=== PATIENT | female | born 1970 | race Two or more races ===

== ENCOUNTER 2016-12-30 14:25 | Emergency (ER) | payer OTHER ==
[2016-12-30 15:13] VITALS: BP 148/81; PULSE 91; TEMP 101; BMI 24.7
[2016-12-30] MEDS ORDERED: IBUPROFEN 400 MG TABLET (FP) PO ONE ×2 (17:03→17:05)
--- NOTE | 2016-12-30 17:09 | PDOC ---
History of Present Illness - General Chief Complaint: Cold Symptoms Stated Complaint: FEVER, SORE THROAT Time Seen by Provider: 12/30/16 16:35 History Source: Patient Exam Limitations: No Limitations - History of Present Illness Initial Comments: 12/30/16 17:04 cc FEVER, SORE THROAT, COUGH, BODY ACHES X 2 DAYS; Timing/Duration: reports: getting worse Severity: reports: moderate Modifying Factors: worse with: albuterol inhaler Associated Symptoms: reports: cough, fever/chills, nasal congestion, nasal drainage, sore throat. denies: denies symptoms, chest pain/soreness, wheezing Past History - Past Medical History Allergies/Adverse Reactions: Allergies Allergy/AdvReac Type Severity Reaction Status Date / Time oxycodone HCl [From Percocet] Allergy Mild Verified 12/30/16 15:09 Home Medications: Ambulatory Orders NK [No Known Home Medication] 12/30/16 Asthma: No GI Disorders: No Disorders: No HTN: No Hypercholesterolemia: No Other medical history: chronic neck pain - Surgical History Orthopedic Surgery: Yes (cervical neck fusion C3-4) - Immunization History Immunization Up to Date: Yes - Psycho/Social/Smoking Cessation Hx Anxiety: No Suicidal Ideation: No Smoking Status: No Smoking History: Never smoked Have you smoked in the past 12 months: No Number of Cigarettes Smoked Daily: 0 Hx Alcohol Use: No Drug/Substance Use Hx: No Substance Use Type: None Hx Substance Use Treatment: No Review of Systems - Review of Systems Constitutional: Yes: Chills, Fever, Malaise HEENTM: Yes: Symptoms Reported Respiratory: Yes: Cough. No: Symptoms reported, SOB with Exertion, Stridor, Wheezing Cardiac (ROS): No: Symptoms Reported ABD/GI: No: Symptoms Reported : No: Symptoms Reported Musculoskeletal: No: Symptoms Reported Integumentary: No: Symptoms Reported Neurological: No: Symptoms reported Psychiatric: No: Anxiety Endocrine: No: Symptoms Reported *Physical Exam - Vital Signs Last Vital Signs Temp Pulse Resp BP Pulse Ox 101 F H 91 H 19 148/81 98 12/30/16 15:09 12/30/16 15:09 12/30/16 15:09 12/30/16 15:09 12/30/16 15:09 - Physical Exam General Appearance: Yes: Appropriately Dressed. No: Apparent Distress HEENT: negative: TMs Normal, Pharynx Normal Neck: positive: Supple, Lymphadenopathy (R), Lymphadenopathy (L). negative: Tender, Rigid Respiratory/Chest: positive: Chest Tender, Lungs Clear, Normal Breath Sounds, Rhonchi, Stridor. negative: Wheezing Cardiovascular: negative: Regular Rhythm, Regular Rate Female Pelvic Exam: negative: normal external exam Medical Decision Making - Medical Decision Making 12/30/16 17:08 MOTRIN GIVEN HERE; WILL CALL AT HOME IF STREP POSITIVE; LOTS OF FLUIDS *DC/Admit/Observation/Transfer Diagnosis at time of Disposition: Influenza - Discharge Dispostion Disposition: HOME Condition at time of disposition: Stable Admit: No - Patient Instructions Additional Instructions: I WILL CALL YOU WITH RESULTS OF STREP IN 1-2 HOURS; ADVIL 400MG FOR FEVER AND PAIN; REST - Post Discharge Activity Work/School Note: Back to Work
== END 2016-12-30 18:24 | disposition home or self-care (01) ==
LOC: JERFT 14:25
DX: J11.1 Influenza due to unidentified influenza virus with other respiratory manifestations (principal)
CPT/HCPCS: 87070; 87430; 99281-25

== ENCOUNTER 2017-03-07 07:57 | Day surgery (SDC) | payer OTHER ==
[2017-03-06 17:48] VITALS: BMI 24.8
--- NOTE | 2017-03-06 18:51 | PREOP ---
DATE OF ADMISSION: DATE OF SURGERY: 03/07/2017 DATE OF DICTATION: 03/06/2017 ADMISSION DIAGNOSIS: Right neck mass. HISTORY OF PRESENT ILLNESS: This 46-year-old female has had mass of the right neck which has been present for 4-5 months. It is painless, and otherwise asymptomatic. She is able to feel the swelling and feel that it has enlarged since she first noticed it. She had a CT scan of the neck performed demonstrating 1.6 cm hypodense mass on the right submandibular region suggesting a second brachial cleft cyst, which is well demarcating and an adjacent small lymph node. It is palpable on exam. She is now admitted for surgery for excision of right neck mass. PAST MEDICAL HISTORY: Primary medical doctor is Dr. Ronen Barbosa. The patient has history of anterior cervical fusion in 2007, also has history of gastroesophageal reflux disease, she does not smoke. ALLERGIES TO MEDICATIONS: None known. PRESENT MEDICATIONS: Include tramadol and omeprazole. On exam, she has had no other bleeding problems. She has not had any problems with anesthesia. FAMILY HISTORY: Negative for bleeding or anesthesia problems. PHYSICAL EXAMINATION: General: Patient is a well developed female, in no acute distress. HEENT: Head is normal. Eyes are clear. Ears are unremarkable. The nose and throat are unremarkable. Neck: Shows a well healed anterior cervical scar from her previous cervical spine surgery. In the right submandibular area, there is a small mobile mass distinct and slightly posterior to the submandibular gland. It is mobile. It lays superior to a natural existing skin fold. IMPRESSION: Right neck mass, second brachial cleft cyst. Small lymph node adjacent. PLAN: Excision of right neck mass under general anesthesia. INFORMED CONSENT: Patient understands the indications, alternatives, nature of risks and benefits of proposed surgery. Potential complications including but not limited to anesthesia, bleeding, infection, neck scar, numbness, lower lip weakness and need for further treatment were discussed in detail. She understands and accepts these risks and wishes to proceed with surgery. Questions were answered fully. EMMANUELLE DELANEY M.D. [id number] MTDD
[2017-03-07] MEDS ORDERED: PROMETHAZINE HCL 25 MG/1 ML VIAL IVPUSH PRN (09:36)
[2017-03-07] MEDS ORDERED: ONDANSETRON 4 MG/2 ML VIAL IVPUSH PRN (09:36)
[2017-03-07] MEDS ORDERED: LACTATED RINGERS SOLUTION 1,000 ML IV SCH (09:45)
--- NOTE | 2017-03-07 09:45 | HP ---
History & Physical Update - History History: No Change - Physical Physical: No Change - Assessment Assessment: No Change - Plan Plan: No Change
[2017-03-07] MEDS ORDERED: ROCURONIUM BROMIDE 50 MG/5 ML VIAL ONE (09:56)
[2017-03-07] MEDS ORDERED: PROPOFOL 20 ML ONE (09:56)
[2017-03-07] MEDS ORDERED: MIDAZOLAM HCL 2 MG/2 ML SINGLE DOSE VIAL ONE (09:56)
[2017-03-07] MEDS ORDERED: LIDOCAINE HCL/PF 2% SDV 5ML VIAL ONE (09:56)
[2017-03-07] MEDS ORDERED: DEXAMETHASONE SOD PHOSPHATE 4 MG/1 ML VIAL ONE (10:14)
[2017-03-07] MEDS ORDERED: GLYCOPYRROLATE 0.2 MG/1 ML VIAL ONE (10:48)
[2017-03-07] MEDS ORDERED: ACETAMINOPHEN 325 MG TABLET (FP) PO PRN (11:23)
[2017-03-07] MEDS ORDERED: TRIMETHOBENZAMIDE HCL 200MG/2ML INJ IM PRN (11:23)
--- NOTE | 2017-03-07 11:23 | OP ---
Operative Note - Note: Operative Date: 03/07/17 ([id number]) Pre-Operative Diagnosis: right neck mass, suspect right branchial cleft cyst and lymph node Operation: Excision of right neck mass - branchial cleft cyst and excision of adjacent lymph node, intermediate closure Findings: 1.5 cm smooth round cyst, adjacent enlarged lymph node (level 2) right upper neck Implants: none Post-Operative Diagnosis: Same as Pre-op Surgeon: Jake Hillman Anesthesiologist/[employer] FORMER: Min Masterson Anesthesia: General Specimens Removed: right neck mass - cyst and lymph node Estimated Blood Loss (mls): 2 Drains & Tubes with Location: none Blood Volume Replaced (mls): 0 Operative Report Dictated: Yes
[2017-03-07 13:52] VITALS: TEMP 98.2
[2017-03-07 13:57] VITALS: BP 129/72
[2017-03-07] MEDS ORDERED: ACETAMINOPHEN 325 MG TABLET (FP) ONE (14:14)
[2017-03-07 16:11] VITALS: PULSE 86
--- NOTE | 2017-03-08 07:40 | OP ---
DATE OF OPERATION: 03/07/2017 PREOPERATIVE DIAGNOSIS: Right neck mass, suspect right branchial cleft cyst, and enlarged lymph node. POSTOPERATIVE DIAGNOSIS: Right neck mass, suspect right branchial cleft cyst and enlarged lymph node. PROCEDURE: Excision of right neck branchial cleft cyst and excision of right deep cervical lymph node with intermediate closure. SURGEON: Jake Hillman MD ANESTHESIOLOGIST: Min Masterson MD ANESTHESIA: General via endotracheal tube. INDICATIONS: This 46-year-old female has developed a 5-month history of a palpable right neck mass, which has enlarged over time. It is posterior to the right submandibular salivary gland and is painless. CT scan demonstrates a 1.6-cm hypodense mass suggesting a right branchial cleft cyst along with an adjacent enlarged lymph node. She is now brought to surgery for treatment. FINDINGS: Right anterior neck cyst, right enlarged cervical lymph node. DESCRIPTION OF PROCEDURE: Patient was brought to the operating room and placed on the operating table in supine position. General endotracheal anesthesia was induced to a satisfactory level. She was prepped and draped in the usual fashion for surgery. The right anterior neck mass was palpable in the location identified with the patient and marked prior to the induction of anesthesia. Inferior to this was a natural occurring skin fold. The skin fold was 5 cm below the inferior border of the mandible. The incision was created with a 15 blade within the natural occurring skin fold and brought down through skin and subcutaneous tissue. Hemostasis was achieved with electrocautery. Subcutaneous fat was traversed. The platysma muscle identified and then incised. Subplatysmal dissection was then performed. The sternocleidomastoid was readily seen. More superiorly then, a rounded cystic structure was identified. The mass was palpable and corresponded to her lesion. This area was then carefully bluntly dissected. It appeared to be a mass along with an adjacent adherent enlarged cervical lymph node. Mass was then circumferentially dissected, and the deeper portion was dissected off the underlying tissue. There was a cyst rupture and clear fluid emanating from this. The remaining cyst wall was preserved. The remaining attachments were then carefully dissected and the final attachment was cauterized and then divided. The mass which consisted of a right neck cyst and lymph node were then sent to Pathology for routine studies. The base of the wound was inspected. Minor oozing was controlled with bipolar cauterization. After assuring complete hemostasis, the wound was then closed in layers utilizing 4-0 Vicryl for the platysma muscle and then also for the subcutaneous layer. A running subcuticular 5-0 Prolene suture was then used to close the skin. The skin was then cleaned, prepped with benzoin, and overlapping Steri-Strips were applied. A dry sterile dressing was placed. Patient tolerated the procedure well. She was then awakened from general anesthesia and transferred to PACU in stable condition. ESTIMATED BLOOD LOSS: 2 mL She received Crystalloid during the procedure. SPECIMENS: Included right neck cyst and lymph node, which were sent to Pathology for routine studies. COMPLICATIONS: There were no complications. Hilda [id number] MTDD
--- NOTE | 2017-03-12 07:54 | PATH ---
Surgical Pathology Report Patient Name: NIKOS MAI [facility]. Rec. #: [id number] /Age/Gender: 1970 (Age: 46) / F Account: [id number] Location: [facility] SURGICAL Taken: 03/07/2017 Received: 03/07/2017 Reported: 03/12/2017 Physicians: Jake Hillman M.D. Specimen(s) Received CYST AND LYMPH NODE RIGHT NECK Clinical History Right neck mass Final Diagnosis "CYST AND LYMPH", RIGHT NECK, EXCISION: BENIGN REACTIVE LYMPH NODE WITH ADJACENT EXPANDED AND DILATED LYMPHATIC SPACES MOST CONSISTENT WITH CYSTIC LYMPHANGIOMA. Electronically Signed Harsh Trujillo M.D. Gross Description Received in formalin labeled "right neck cyst and lymph node" is a 2.2 x 1.3 x 0.8 cm fernandez-pink, irregular portion of soft tissue. The specimen is bisected and entirely submitted in one cassette. /03/07/2017 saudi03/07/2017
== END 2017-03-07 16:15 | disposition home or self-care (01) ==
LOC: JASU-SURG 07:57
PROVIDERS: ATTEND Otolaryngology
PROC: 07B20ZX Excision of Left Neck Lymphatic, Open Approach, Diagnostic (ICD-10-PCS; 2017-03-07)
PROC: 0JB40ZZ Excision of Right Neck Subcutaneous Tissue and Fascia, Open Approach (ICD-10-PCS; principal; 2017-03-07 09:30)
DX: D18.1 Lymphangioma, any site (principal); R59.0 Localized enlarged lymph nodes
CPT/HCPCS: 84703; 88305-TC; 94760

== ENCOUNTER 2018-10-11 13:05 | Emergency (ER) | payer OTHER ==
[2018-10-11 13:12] VITALS: BP 131/77; PULSE 77; TEMP 98.4; BMI 22.4
--- NOTE | 2018-10-11 14:00 | PDOC ---
History of Present Illness - General Chief Complaint: Chronic pain Stated Complaint: Pain Time Seen by Provider: 10/11/18 13:35 History Source: Patient Exam Limitations: No Limitations Past History - Travel Traveled outside of the country in the last 30 days: No Close contact w/someone who was outside of country & ill: No - Past Medical History Allergies/Adverse Reactions: Allergies Allergy/AdvReac Type Severity Reaction Status Date / Time No Known Allergies Allergy Verified 10/11/18 13:13 Home Medications: Ambulatory Orders Cyclobenzaprine HCl 5 mg PO HS #10 tablet 10/11/18 Methylprednisolone [Medrol Dose Abilio] 4 mg PO ASDIR #21 tablet 10/11/18 Asthma: No COPD: No GI Disorders: Yes (REFLUX) Disorders: No HTN: No Hypercholesterolemia: No - Surgical History Orthopedic Surgery: Yes (cervical neck fusion C3-4) - Immunization History Immunization Up to Date: Yes - Suicide/Smoking/Psychosocial Hx Smoking Status: No Smoking History: Never smoked Have you smoked in the past 12 months: No Number of Cigarettes Smoked Daily: 0 Hx Alcohol Use: Yes (socially) Drug/Substance Use Hx: No Substance Use Type: None Hx Substance Use Treatment: No Review of Systems - Review of Systems Able to Perform ROS?: Yes Comments:: 10/11/18 14:21 CONSTITUTIONAL: Absent: fever, chills, diaphoresis, generalized weakness, malaise, loss of appetite HEENT: Absent: rhinorrhea, nasal congestion, throat pain, throat swelling, difficulty swallowing, mouth swelling, ear pain, eye pain, visual Changes CARDIOVASCULAR: Absent: chest pain, loss of consciousness, palpitations, irregular heart rate, peripheral edema RESPIRATORY: Absent: cough, shortness of breath, dyspnea with exertion, orthopnea, wheezing, stridor, hemoptysis GASTROINTESTINAL: Absent: abdominal pain, abdominal distension, nausea, vomiting, diarrhea, constipation, melena, hematochezia GENITOURINARY: Absent: dysuria, frequency, urgency, hesitancy, hematuria, flank pain, genital pain MUSCULOSKELETAL: Absent: myalgia, arthralgia, joint swelling SKIN: Absent: rash, itching, pallor HEMATOLOGIC/IMMUNOLOGIC: Absent: easy bleeding, easy bruising, lymphadenopathy, frequent infections ENDOCRINE: Absent: unexplained weight gain, unexplained weight loss, heat intolerance, cold intolerance NEUROLOGIC: Absent: headache, focal weakness or paresthesias, dizziness, unsteady gait, seizure, mental status changes, bladder or bowel incontinence PSYCHIATRIC: Absent: anxiety, depression, suicidal or homicidal ideation, hallucinations. Is the patient limited Trinidadian proficient: No *Physical Exam - Vital Signs Last Vital Signs Temp Pulse Resp BP Pulse Ox 98.4 F 77 18 131/77 100 10/11/18 13:07 10/11/18 13:07 10/11/18 13:07 10/11/18 13:07 10/11/18 13:07 - Physical Exam Comments: 10/11/18 14:21 GENERAL: Well developed, well nourished. Awake and alert. No acute distress. HEENT: Normocephalic, atraumatic. PERRLA, EOMI. No conjunctival pallor. Sclera are non- icteric. Moist mucous membranes. Oropharynx is clear. NECK: Supple. Full ROM. No JVD. Carotid pulses 2+ and symmetric, without bruits. No thyromegaly. No lymphadenopathy. CARDIOVASCULAR: Regular rate and rhythm. No murmurs, rubs, or gallops. Distal pulses are 2+ and symmetric. PULMONARY: No evidence of respiratory distress. Lungs clear to auscultation bilaterally. No wheezing, rales or rhonchi. ABDOMINAL: Soft. Non-tender. Non-distended. No rebound or guarding. No organomegaly. Normoactive bowel sounds. MUSCULOSKELETAL Normal range of motion at all joints. No bony deformities or tenderness. No CVA tenderness. EXTREMITIES: No cyanosis. No clubbing. No edema. No calf tenderness. SKIN: Warm and dry. Normal capillary refill. No rashes. No jaundice. NEUROLOGICAL: Alert, awake, appropriate. Cranial nerves 2-12 intact. No deficits to light touch and temperature in face, upper extremities and lower extremities. No motor deficits in the in face, upper extremities and lower extremities. Normoreflexic in the upper and lower extremities. Normal speech. Toes are down- going bilaterally. Gait is normal without ataxia. PSYCHIATRIC: Cooperative. Good eye contact. Appropriate mood and affect. Moderate Sedation - Procedure Monitoring Vital Signs: Procedure Monitoring Vital Signs Temperature 98.4 F 10/11/18 13:07 Pulse Rate 77 10/11/18 13:07 Respiratory Rate 18 10/11/18 13:07 Blood Pressure 131/77 10/11/18 13:07 O2 Sat by Pulse Oximetry (%) 100 10/11/18 13:07 *DC/Admit/Observation/Transfer Diagnosis at time of Disposition: Neck pain Headache Qualifiers: Headache type: unspecified Headache chronicity pattern: acute headache Intractability: not intractable Qualified Code(s): R51 - Headache - Discharge Dispostion Disposition: HOME Condition at time of disposition: Stable Decision to Admit order: No - Referrals Referrals: Ronen Barbosa MD [Primary Care Provider] - Lane Pascual MD [Staff Physician] - - Patient Instructions Printed Discharge Instructions: Thoracic Back Pain Additional Instructions: You have upper back pain due to a muscle spasm. This is what is most likely causing your headache. Please take the medrol dose pack as prescribed. You were also prescribed Flexeril. Please take this medication every 8 hours for the first day. Then take the medication before you go to bed. Do not drive after taking this medication as it may make you sleepy. You may use warm compresses on your back to help with her symptoms. Please follow-up with your primary care doctor. If your symptoms do not resolve in 3-5 days, follow-up with orthopedics. A referral has been provided for you. Return to the emergency department if you have worsening back pain, bladder or bowel incontinence, numbness and tingling in her legs/arms, changes in the way you walk, or any new or worsening symptoms. - Post Discharge Activity Forms/Work/School Notes: Back to Work
== END 2018-10-11 14:28 | disposition home or self-care (01) ==
LOC: JERFT 13:05
DX: M54.2 Cervicalgia (principal); R51 Headache
CPT/HCPCS: 99281-25

== ENCOUNTER 2018-11-22 07:10 | Emergency (ER) | payer OTHER ==
[2018-11-22 07:25] VITALS: BP 140/74; PULSE 81; TEMP 98.3; BMI 24.3
--- NOTE | 2018-11-22 07:42 | PDOC ---
History of Present Illness - General Chief Complaint: Cold Symptoms Stated Complaint: PAIN KNEES AND WRISTS Time Seen by Provider: 11/22/18 07:41 History Source: Patient Past History - Past Medical History Allergies/Adverse Reactions: Allergies Allergy/AdvReac Type Severity Reaction Status Date / Time No Known Allergies Allergy Verified 10/11/18 13:13 Home Medications: Ambulatory Orders NK [No Known Home Medication] 11/22/18 Asthma: No COPD: No GI Disorders: Yes (REFLUX) Disorders: No HTN: No Hypercholesterolemia: No - Surgical History Orthopedic Surgery: Yes (cervical neck fusion C3-4) - Immunization History Immunization Up to Date: Yes - Suicide/Smoking/Psychosocial Hx Smoking Status: No Smoking History: Never smoked Have you smoked in the past 12 months: No Number of Cigarettes Smoked Daily: 0 Hx Alcohol Use: No Drug/Substance Use Hx: No Substance Use Type: None Hx Substance Use Treatment: No Review of Systems - Review of Systems Constitutional: Yes: Malaise. No: Chills, Fever HEENTM: No: Ear Pain, Throat Pain Respiratory: No: Cough ABD/GI: No: Nausea, Vomiting *Physical Exam - Vital Signs Last Vital Signs Temp Pulse Resp BP Pulse Ox 98.3 F 81 16 140/74 99 11/22/18 07:20 11/22/18 07:20 11/22/18 07:20 11/22/18 07:20 11/22/18 07:20 - Physical Exam Comments: 11/22/18 08:02 sita mildly uncomfortable General Appearance: Yes: Appropriately Dressed HEENT: positive: Normal Voice Neck: positive: Supple Respiratory/Chest: negative: Respiratory Distress Extremity: positive: Normal Inspection, Normal Range of Motion. negative: Tender, Swelling, Erythema Integumentary: positive: Dry, Warm Neurologic: positive: Fully Oriented, Alert, Normal Mood/Affect Moderate Sedation - Procedure Monitoring Vital Signs: Procedure Monitoring Vital Signs Temperature 98.3 F 11/22/18 07:20 Pulse Rate 81 11/22/18 07:20 Respiratory Rate 16 11/22/18 07:20 Blood Pressure 140/74 11/22/18 07:20 O2 Sat by Pulse Oximetry (%) 99 11/22/18 07:20 Medical Decision Making - Medical Decision Making 11/22/18 07:59 48-year-old female, s/p fusion of cspine remotely, was in usual state of health until this a.m. when she awoke with malaise and pain to bilateral knee and bilateral wrist. States she feels like she is "coming down with the flu". Denies fever, chills, cough, sore throat or ear pain. Of note, patient has had bilateral knee pain in the past with bilateral small effusion on MRI 2016. States current pain is different. No recent travel or sick contacts See exam Malaise w/ multiple joint pain this am Possibly viral, r/o flu Exam unremarkable -pain control in ED 11/22/18 08:18 Flu negative. Pain improved w/ tylenol per pt. Will dc w/ supportive tx. PMD f/ u as needed *DC/Admit/Observation/Transfer Diagnosis at time of Disposition: Malaise, Multiple joint pain - Discharge Dispostion Disposition: HOME Condition at time of disposition: Improved - Referrals Referrals: Ronen Barbosa MD [Primary Care Provider] - - Patient Instructions Additional Instructions: Your symptoms are possibly viral. Your flu test was negative. Please take Motrin or Tylenol for pain as needed. Rest and drink plenty of fluids. If symptoms worsen, return to the ED, otherwise follow-up with your PMD as needed - Post Discharge Activity
[2018-11-22] MEDS ORDERED: ACETAMINOPHEN 325 MG TABLET (FP) PO ONE (07:46)
[2018-11-22] MEDS ORDERED: ACETAMINOPHEN 325 MG TABLET (FP) ONE (07:48)
== END 2018-11-22 08:25 | disposition home or self-care (01) ==
LOC: JER 07:10
DX: R53.81 Other malaise (principal); M25.562 Pain in left knee; M25.561 Pain in right knee; M25.531 Pain in right wrist; M25.532 Pain in left wrist; Z87.19 Personal history of other diseases of the digestive system; Z98.1 Arthrodesis status
CPT/HCPCS: 87804; 99281-25

== ENCOUNTER 2019-03-08 09:36 | Emergency (ER) | payer OTHER ==
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
[2019-03-08 09:49] VITALS: TEMP 98.2; BMI 24.5
[2019-03-08] MEDS ORDERED: KETOROLAC TROMETHAMINE 15 MG/ML VIAL IVPUSH ONE (10:23)
[2019-03-08] MEDS ORDERED: KETOROLAC TROMETHAMINE 15 MG/ML VIAL ONE (10:30)
[2019-03-08] MEDS ORDERED: KETOROLAC TROMETHAMINE 15 MG/ML VIAL IM ONE (10:36)
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
[2019-03-08 12:53] VITALS: BP 137/76; PULSE 83
== END 2019-03-08 13:09 | disposition home or self-care (01) ==
LOC: JER 09:36
PROC: 3E0233Z Introduction of Anti-inflammatory into Muscle, Percutaneous Approach (ICD-10-PCS; principal; 2019-03-08)
DX: M25.511 Pain in right shoulder (principal); M79.641 Pain in right hand; V43.52XA Car driver injured in collision with other type car in traffic accident, initial encounter; Y93.89 Activity, other specified; Y92.410 Unspecified street and highway as the place of occurrence of the external cause; K52.9 Noninfective gastroenteritis and colitis, unspecified; K21.9 Gastro-esophageal reflux disease without esophagitis
CPT/HCPCS: 72125-TC; 72128-TC; 73030-TC-RT-FY; 73130-TC-RT-FY; 84703; 99282-25

== ENCOUNTER 2020-06-17 17:18 | Emergency (ER) | payer OTHER ==
[2020-06-17 17:38] VITALS: TEMP 97.5; BMI 25.0
[2020-06-17] MEDS ORDERED: METOCLOPRAMIDE HCL INJECTION 10 MG/2 ML VIAL IVPB ONE (18:20)
[2020-06-17] MEDS ORDERED: ACETAMINOPHEN 1000 MG/100 ML VIAL (NON FORMULARY) IVPB ONE (18:20)
[2020-06-17] MEDS ORDERED: SODIUM CHLORIDE 1,000 ML IV STA (18:20)
[2020-06-17] MEDS ORDERED: ACETAMINOPHEN INJECTION 100 ML IVPB ONE (18:31)
[2020-06-17] MEDS ORDERED: METOCLOPRAMIDE HCL INJECTION 10 MG/2 ML VIAL ONE (18:31)
[2020-06-17] MEDS ORDERED: diphenhydrAMINE HCL 25 MG CAPSULE (FP) PO ONE (18:50)
[2020-06-17 19:09] LABS: BASO % 0.6 % (0-2.0); EOS % 0.3 % (0-4.5); HEMATOCRIT 44.5 % (32.4-45.2); LYMPH % 10.9 % (8-40); MCH 32.3 pg (25.7-33.7); MCHC 33.8 g/dl (32.0-36.0); MEAN CELL VOLUME 95.4 fl (80-96); MEAN PLT VOLUME 9.1 fl (7.5-11.1); MONO % 2.8 % (3.8-10.2); NEUT % 85.4 % (42.8-82.8); PLATELET COUNT 367 K/MM3 (134-434); RBC 4.66 M/mm3 (3.60-5.2); RDW 12.5 % (11.6-15.6); WHITE BLOOD COUNT 8.2 K/mm3 (4.0-10.0)
[2020-06-17 19:35] LABS: ALBUMIN 4.4 g/dl (3.4-5.0); BILIRUBIN,TOTAL 0.4 mg/dL (0.2-1); BLOOD UREA NITROGEN 8.8 mg/dL (7-18); CALCIUM 9.8 mg/dL (8.5-10.1); CREATININE 0.8 mg/dL (0.55-1.3); POTASSIUM 3.9 mmol/L (3.5-5.1); TOT PROT 8.1 g/dl (6.4-8.2)
--- NOTE | 2020-06-17 20:36 | PDOC ---
History of Present Illness - General Chief Complaint: Headache Stated Complaint: HEADACHE AND NAUSEA Time Seen by Provider: 06/17/20 17:54 History Source: Patient Exam Limitations: No Limitations Past History - Travel History Traveled outside of the country in the last 30 days: No Close contact w/someone who was outside of country & ill: No - Medical History Allergies/Adverse Reactions: Allergies Allergy/AdvReac Type Severity Reaction Status Date / Time No Known Allergies Allergy Verified 06/17/20 17:32 Home Medications: Ambulatory Orders Butalb/Acetaminophen/Caffeine [Fioricet 50-300-40 mg Capsule] 1 each PO BID #10 capsule MDD 2 06/17/20 Metoclopramide HCl [Reglan -] 10 mg PO TID #21 tablet 06/17/20 Asthma: No COPD: No GI Disorders: Yes (REFLUX) Disorders: No HTN: No Hypercholesterolemia: No - Surgical History Orthopedic Surgery: Yes (cervical neck fusion C3-4) - Reproductive History Is Patient Now?: No - Immunization History Immunization Up to Date: Yes - Psycho-Social/Smoking History Smoking Status: No Smoking History: Never smoked Have you smoked in the past 12 months: No Number of Cigarettes Smoked Daily: 0 - Substance Abuse Hx (Audit-C & DAST Scrn) How often the patient has a drink containing alcohol: Never Score: In Men: 4 or > Positive; In Women: 3 or > Positive: 0 Screen Result (Pos requires Nsg. Audit-10AR): Negative In the last yr the pt used illegal drug/Rx for NonMed reason: No Score: Yes response is considered Positive: 0 Screen Result (Positive result requires Nsg. DAST-10): Negative Review of Systems - Review of Systems Able to Perform ROS?: Yes Comments:: 06/19/20 22:16 CONSTITUTIONAL: Absent: fever, chills, diaphoresis, generalized weakness, malaise, loss of appetite HEENT: Absent: rhinorrhea, nasal congestion, throat pain, throat swelling, difficulty swallowing, mouth swelling, ear pain, eye pain, visual Changes CARDIOVASCULAR: Absent: chest pain, loss of consciousness, palpitations, irregular heart rate, peripheral edema RESPIRATORY: Absent: cough, shortness of breath, dyspnea with exertion, orthopnea, wheezing, stridor, hemoptysis GASTROINTESTINAL: Present: Nausea, vomiting absent: abdominal pain, abdominal distension,diarrhea, constipation, melena, hematochezia GENITOURINARY: Absent: dysuria, frequency, urgency, hesitancy, hematuria, flank pain, genital pain MUSCULOSKELETAL: Absent: myalgia, arthralgia, joint swelling SKIN: Absent: rash, itching, pallor HEMATOLOGIC/IMMUNOLOGIC: Absent: easy bleeding, easy bruising, lymphadenopathy, frequent infections ENDOCRINE: Absent: unexplained weight gain, unexplained weight loss, heat intolerance, cold intolerance NEUROLOGIC: Present: Headache absent: focal weakness or paresthesias, dizziness, unsteady gait, seizure, mental status changes, bladder or bowel incontinence PSYCHIATRIC: Absent: anxiety, depression, suicidal or homicidal ideation, hallucinations. Is the patient limited Filipino proficient: No *Physical Exam - Vital Signs Last Vital Signs Temp Pulse Resp BP Pulse Ox 97.5 F L 93 H 17 160/73 100 06/17/20 17:33 06/17/20 17:33 06/17/20 17:33 06/17/20 17:33 06/17/20 17:33 - Physical Exam 06/17/20 21:24 GENERAL: Well developed, well nourished. Awake and alert. No acute distress. HEENT: Normocephalic, atraumatic. PERRLA, EOMI. No conjunctival pallor. Sclera are non-icteric. Moist mucous membranes. NECK: Supple. Full ROM. No lymphadenopathy. CARDIOVASCULAR: Regular rate and rhythm. No murmurs, rubs, or gallops. Distal pulses are 2+ and symmetric. PULMONARY: No evidence of respiratory distress. Lungs clear to auscultation bilaterally. No wheezing, rales or rhonchi. ABDOMINAL: Soft. Non-tender. Non-distended. No rebound or guarding. No organomegaly. Normoactive bowel sounds. MUSCULOSKELETAL Normal range of motion at all joints. No bony deformities or tenderness. No CVA tenderness. EXTREMITIES: No cyanosis. No clubbing. No edema. No calf tenderness. SKIN: Warm and dry. Normal capillary refill. No rashes. No jaundice. NEUROLOGICAL: Alert, awake, appropriate. Cranial nerves 2-12 intact. No deficits to light touch and temperature in face, upper extremities and lower extremities. No motor deficits in the in face, upper extremities and lower extremities. Normoreflexic in the upper and lower extremities. Normal speech. Toes are down-going bilateral ly. Gait is normal without ataxia. PSYCHIATRIC: Cooperative. Good eye contact. Appropriate mood and affect. ED Treatment Course - LABORATORY CBC & Chemistry Diagram: 06/17/20 18:48 06/17/20 18:48 - ADDITIONAL ORDERS Additional order review: Laboratory Results 06/17/20 18:48 Sodium 137 Potassium 3.9 Chloride 104 Carbon Dioxide 25 Anion Gap 8 BUN 8.8 Creatinine 0.8 Est GFR (CKD-EPI)AfAm 101.04 Est GFR (CKD-EPI)NonAf 87.18 Random Glucose 124 H Calcium 9.8 Total Bilirubin 0.4 AST 24 ALT 48 Alkaline Phosphatase 76 Total Protein 8.1 Albumin 4.4 06/17/20 18:48 RBC 4.66 MCV 95.4 MCHC 33.8 RDW 12.5 MPV 9.1 Neutrophils % 85.4 H D Lymphocytes % 10.9 D Monocytes % 2.8 L Eosinophils % 0.3 Basophils % 0.6 - Medications Given in the ED: ED Medications Discontinued Medications Generic Name Dose Route Start Last Admin Trade Name Freq PRN Reason Stop Dose Admin Acetaminophen 1,000 mg 06/17/20 18:20 06/17/20 18:57 Ofirmev Injection - IVPB 06/17/20 18:21 1,000 mg ONCE ONE Administration Diphenhydramine HCl 12.5 mg 06/17/20 18:20 06/17/20 18:57 Benadryl Injection - IVPB 06/17/20 18:21 Not Given ONCE ONE Sodium Chloride 1,000 mls @ 1,000 mls/hr 06/17/20 18:20 06/17/20 18:57 Normal Saline - IV 06/17/20 19:19 1,000 mls/hr ASDIR STA Administration Metoclopramide HCl 10 mg 06/17/20 18:20 06/17/20 18:57 Reglan Injection - IVPB 06/17/20 18:21 10 mg ONCE ONE Administration Medical Decision Making - Medical Decision Making 06/19/20 20:24 Patient is a 49-year-old female past medical history of recent cervical spine fusion presents to the ER today for a migraine with associated nausea and vomiting. She currently rates the pain a 10 out of 10. She has tried taking Aleve at home with little relief of her symptoms. She states that the pain is surrounding her whole head and consistent with past migraines. She states that she came to the ER because she has been nauseous and vomiting due to the pain, and given her recent spinal surgery she was advised to avoid vomiting and straining the neck. Denies neck pain, upper back pain, cervical radiculopathy, loss of consciousness, lightheadedness, gait changes, chest pain, shortness of breath, urinary changes. A/P: Headache On exam patient is neurologically intact with no focal deficits. Mild photophobia on exam. Basic labs drawn, migraine cocktail given. No red flags on history. Not a sudden onset headache. Consistent with past migraines. Patient states she ran out of her sumatriptan. Likely patient's migraine history. Reevaluate 06/17/20 22:32 Patient reports relief in symptoms, pain now a 5 out of 10. Nausea and vomiting completely relieved. We will discharge home with patient to follow-up with her primary care and ne urology for further management of her symptoms. Fioricet and Reglan prescription sent to patient's pharmacy Return precautions given. I discussed the physical exam findings, ancillary test results and final diagnoses with the patient. I answered all of the patient's questions. The patient was satisfied with the care received and felt comfortable with the discharge plan and treatment plan. The Patient agrees to follow up with the primary care physician/specialist within 24-72 hours. Return precautions were given. Discharge - Discharge Information Problems reviewed: Yes Clinical Impression/Diagnosis: Migraine Qualifiers: Migraine type: other Status migrainosus presence: without status migrainosus Intractability: not intractable Qualified Code(s): G43.809 - Other migraine, not intractable, without status migrainosus Condition: Stable Disposition: HOME - Admission No - Additional Discharge Information Prescriptions: Butalb/Acetaminophen/Caffeine [Fioricet 50-300-40 mg Capsule] 1 each PO BID #10 capsule MDD 2 Metoclopramide HCl [Reglan -] 10 mg PO TID #21 tablet - Follow up/Referral Referrals: Ronen Barbosa MD [Primary Care Provider] - - Patient Discharge Instructions Patient Printed Discharge Instructions: DI for Migraine Additional Instructions: You were seen for your headache today. Please drink plenty of fluids and get plenty of rest. You may take the Reglan and Fioricet starting tomorrow. Follow the dosing instructions on the bottle. Continue your PT as needed for your neck. Please follow-up with your primary care doctor this week for further management of your symptoms. Return to the ER for worsening headache, vomiting, numbness and tingling in your upper extremities or if you have any changes in your symptoms. - Post Discharge Activity
[2020-06-17 21:07] VITALS: BP 156/82; PULSE 88
== END 2020-06-17 21:09 | disposition home or self-care (01) ==
LOC: JER 17:18
PROC: 3E033NZ Introduction of Analgesics, Hypnotics, Sedatives into Peripheral Vein, Percutaneous Approach (ICD-10-PCS; principal; 2020-06-17)
PROC: 3E033GC Introduction of Other Therapeutic Substance into Peripheral Vein, Percutaneous Approach (ICD-10-PCS; 2020-06-17)
PROC: 3E0337Z Introduction of Electrolytic and Water Balance Substance into Peripheral Vein, Percutaneous Approach (ICD-10-PCS; 2020-06-17)
DX: G43.809 Other migraine, not intractable, without status migrainosus (principal)
CPT/HCPCS: 36415; 80053; 85025; 99285-25; J0131

== ENCOUNTER 2021-04-09 22:05 | Emergency (ER) | payer OTHER ==
[2021-04-09 22:11] VITALS: BP 175/82; PULSE 74; TEMP 97.7; BMI 24.7
== END 2021-04-09 23:03 | disposition home or self-care (01) ==
LOC: JER 22:05
DX: I10 Essential (primary) hypertension (principal)
CPT/HCPCS: 99281-25

== ENCOUNTER 2022-01-04 16:41 | Inpatient (IN) | payer OTHER ==
[2022-01-04 17:18] VITALS: BMI 25.0
[2022-01-04] MEDS ORDERED: SODIUM CHLORIDE 0.9% 500 ML INFUS.BAG IV ONE (18:57)
[2022-01-04] MEDS ORDERED: ONDANSETRON 4 MG/2 ML VIAL IVPUSH ONE (18:57)
[2022-01-04] MEDS ORDERED: ACETAMINOPHEN 1000 MG/100 ML BAG IVPB ONE (18:58)
[2022-01-04] MEDS ORDERED: ACETAMINOPHEN INJECTION 100 ML IVPB ONE (19:41)
[2022-01-04] MEDS ORDERED: ONDANSETRON 4 MG/2 ML VIAL ONE (19:42)
[2022-01-04 20:01] LABS: HEMATOCRIT 45.4 % (32.4-45.2); HEMOGLOBIN 15.9 GM/dL (10.7-15.3); MCH 33.5 pg (25.7-33.7); MEAN CELL VOLUME 95.7 fl (80-96); PLATELET COUNT 197 10^3/uL (134-434); RBC 4.75 M/mm3 (3.60-5.2); RDW 13.4 % (11.6-15.6); WHITE BLOOD COUNT 9.4 K/mm3 (4.0-10.0)
[2022-01-04] MEDS ORDERED: morphine CARPU-JECT 2 MG/1 ML DISP.SYRIN IVPUSH ONE (20:02)
[2022-01-04 20:03] LABS: URINE APPEARANCE CLEAR; URINE BILIRUBIN NEGATIVE (NEGATIVE); URINE COLOR YELLOW; URINE GLUCOSE (UA) NEGATIVE (NEGATIVE); URINE KETONE NEGATIVE (NEGATIVE); URINE LEUK ESTERASE NEGATIVE (NEGATIVE); URINE NITRITE NEGATIVE (NEGATIVE); URINE PROTEIN NEGATIVE (NEGATIVE); URINE UROBILINOGEN 0.2 mg/dL (0.2-1.0)
[2022-01-04 20:35] LABS: CALCIUM 9.3 mg/dL (8.5-10.1)
[2022-01-04 20:36] LABS: ALBUMIN 4.2 g/dl (3.4-5.0); BLOOD UREA NITROGEN 16.6 mg/dL (7-18)
[2022-01-04 20:39] LABS: CREATININE 0.9 mg/dL (0.55-1.3)
[2022-01-04 20:40] LABS: BILIRUBIN,TOTAL 0.9 mg/dL (0.2-1); TOT PROT 7.9 g/dl (6.4-8.2)
[2022-01-04 20:47] LABS: PLATELET ESTIMATE ADEQUATE
[2022-01-04] MEDS ORDERED: POTASSIUM CHLORIDE TABS 20 MEQ TABLET.ER (FP) PO ONE ×2 (21:24→21:46)
[2022-01-04] MEDS ORDERED: ASPIRIN 325 MG TABLET PO ONE (21:24)
[2022-01-04] MEDS ORDERED: ASPIRIN 325 MG TABLET ONE (21:46)
[2022-01-05] MEDS ORDERED: ACETAMINOPHEN 325 MG TABLET (FP) PO PRN (01:44)
[2022-01-05] MEDS ORDERED: POLYETHYLENE GLYCOL (HEALTHYLAX) 3350 17 GM PACKET PO PRN (01:44)
[2022-01-05] MEDS ORDERED: GABAPENTIN 100 MG CAPSULE ONE (03:16)
[2022-01-05] MEDS: GABAPENTIN 300 MG CAPSULE PO SCH ×2 (03:22→21:12)
[2022-01-05 03:33] LABS: INR 1.14 (0.83-1.09); PROTHROMBIN TIME (PATIENT) 13.1 SEC (9.7-13.0)
[2022-01-05 03:35] LABS: ACTIVATED PTT 28.3 SECONDS (25.2-36.5)
[2022-01-05 03:43] LABS: MAGNESIUM 1.3 mg/dL (1.8-2.4)
[2022-01-05 07:55] LABS: BASO % 0.1 % (0-2.0); EOS % 0.8 % (0-4.5); HEMATOCRIT 38.5 % (32.4-45.2); HEMOGLOBIN 13.6 GM/dL (10.7-15.3); LYMPH % 11.6 % (8-40); MCH 33.3 pg (25.7-33.7); MCHC 35.4 g/dl (32.0-36.0); MEAN PLT VOLUME 9.3 fl (7.5-11.1); MONO % 8.4 % (3.8-10.2); NEUT % 79.1 % (42.8-82.8); PLATELET COUNT 175 10^3/uL (134-434); RBC 4.09 M/mm3 (3.60-5.2); RDW 13.1 % (11.6-15.6); WHITE BLOOD COUNT 5.3 K/mm3 (4.0-10.0)
[2022-01-05] MEDS ORDERED: ASPIRIN 325 MG ENTERIC COATED TABLET (FP) ONE (09:08)
[2022-01-05] MEDS ORDERED: PANTOPRAZOLE 40 MG TABLET ONE (09:08)
[2022-01-05] MEDS ORDERED: propRANOLol HCL 10 MG TABLET ONE (09:09)
[2022-01-05] MEDS: PANTOPRAZOLE 40 MG TABLET PO SCH (09:30)
[2022-01-05] MEDS ORDERED: CHLORTHALIDONE 25 MG TABLET PO SCH (10:00)
[2022-01-05] MEDS ORDERED: ASPIRIN 325 MG ENTERIC COATED TABLET (FP) PO SCH (10:00)
[2022-01-05] MEDS ORDERED: MAGNESIUM SULF 50% (8.12 MEQ/2 ML-1 GM VIAL) IVPB ONE (11:09)
[2022-01-05 16:30] LABS: CHLORIDE 102 mmol/L (98-107); SODIUM 139 mmol/L (136-145)
[2022-01-05 16:31] LABS: CALCIUM 8.5 mg/dL (8.5-10.1)
[2022-01-05 16:32] LABS: BLOOD UREA NITROGEN 10.2 mg/dL (7-18); CO2 29 mmol/L (21-32); GLUCOSE,RANDOM 115 mg/dL (74-106); MAGNESIUM 2.7 mg/dL (1.8-2.4)
[2022-01-05 16:35] LABS: CREATININE 0.7 mg/dL (0.55-1.3)
[2022-01-05 16:41] LABS: ANION GAP 7 MMOL/L (8-16)
[2022-01-05] MEDS: POTASSIUM CHLORIDE ORAL LIQUID 20 MEQ/15 ML PO SCH (21:17)
[2022-01-06] MEDS ORDERED: ASPIRIN 81 MG CHEWABLE TABLETS PO SCH (10:00)
[2022-01-06 10:28] LABS: CALCIUM 8.9 mg/dL (8.5-10.1)
[2022-01-06 10:29] LABS: BLOOD UREA NITROGEN 10.6 mg/dL (7-18)
[2022-01-06 10:32] LABS: BASO % 0.2 % (0-2.0); EOS % 1.8 % (0-4.5); HEMATOCRIT 41.7 % (32.4-45.2); HEMOGLOBIN 14.7 GM/dL (10.7-15.3); LYMPH % 20.5 % (8-40); MCH 33.5 pg (25.7-33.7); MCHC 35.4 g/dl (32.0-36.0); MEAN CELL VOLUME 94.6 fl (80-96); MEAN PLT VOLUME 9.1 fl (7.5-11.1); MONO % 13.8 % (3.8-10.2); NEUT % 63.7 % (42.8-82.8); PLATELET COUNT 197 10^3/uL (134-434); RDW 13.1 % (11.6-15.6); WHITE BLOOD COUNT 4.5 K/mm3 (4.0-10.0)
[2022-01-06 10:33] LABS: CREATININE 0.8 mg/dL (0.55-1.3)
[2022-01-06] MEDS: PANTOPRAZOLE 40 MG TABLET PO SCH (10:35)
[2022-01-06] MEDS: GABAPENTIN 300 MG CAPSULE PO SCH (10:35)
[2022-01-06] MEDS: POTASSIUM CHLORIDE ORAL LIQUID 20 MEQ/15 ML PO SCH (10:36)
[2022-01-06 12:26] VITALS: BP 118/77; PULSE 84; TEMP 97.2
== END 2022-01-06 13:13 | disposition home or self-care (01) | DRG 203 ==
LOC: JER 16:41 → JERBED 01-05 00:51 → J4W 01-05 10:57
PROVIDERS: ADMIT Hospitalist; ATTEND Family Medicine
DX: R07.89 Other chest pain (principal); E83.42 Hypomagnesemia; K76.0 Fatty (change of) liver, not elsewhere classified; E87.5 Hyperkalemia; E87.6 Hypokalemia; I10 Essential (primary) hypertension; K21.9 Gastro-esophageal reflux disease without esophagitis; R00.2 Palpitations; R06.02 Shortness of breath; R10.31 Right lower quadrant pain; R11.2 Nausea with vomiting, unspecified; R20.2 Paresthesia of skin; R61 Generalized hyperhidrosis; N83.202 Unspecified ovarian cyst, left side
CPT/HCPCS: 36415; 71046-TC-FY; 74177-TC; 76700-TC; 80048; 80053; 81003; 83690; 83735; 84443; 84484; 85025; 85610; 85730; 87086; 93005; 93010; 99285-25; C9803; U0003; U0005

== ENCOUNTER 2022-10-09 19:11 | Emergency (ER) | payer OTHER ==
[2022-10-09 19:30] VITALS: BP 149/84; PULSE 96; RESP 18; TEMP 99.8; BMI 25.0
== END 2022-10-09 20:53 | disposition home or self-care (01) ==
LOC: JER 19:11
DX: J06.9 Acute upper respiratory infection, unspecified (principal)
CPT/HCPCS: 0241U-QW; 99283-25

== ENCOUNTER 2023-04-09 11:15 | Emergency (ER) | payer OTHER ==
[2023-04-09 11:36] VITALS: BMI 25.0
[2023-04-09 13:24] LABS: BASO % 0.4 % (0-2.0); EOS % 1.1 % (0-4.5); HEMATOCRIT 41.8 % (32.4-45.2); LYMPH % 26.9 % (8-40); MCH 31.5 pg (25.7-33.7); MCHC 33.5 g/dl (32.0-36.0); MEAN CELL VOLUME 94.2 fl (80-96); MEAN PLT VOLUME 8.7 fl (7.5-11.1); MONO % 8.3 % (3.8-10.2); NEUT % 63.3 % (42.8-82.8); PLATELET COUNT 256 10^3/uL (134-434); RBC 4.44 M/mm3 (3.60-5.2); RDW 13.3 % (11.6-15.6); WHITE BLOOD COUNT 5.9 K/mm3 (4.0-10.0)
[2023-04-09 13:37] LABS: INR 0.95 (0.83-1.09)
[2023-04-09 13:39] LABS: ACTIVATED PTT 29.4 SECONDS (25.2-36.5)
[2023-04-09 13:47] LABS: POTASSIUM 4.5 mmol/L (3.5-5.1)
[2023-04-09 13:49] LABS: ALBUMIN 4.1 g/dl (3.4-5.0); BLOOD UREA NITROGEN 12.5 mg/dL (7-18); CALCIUM 9.5 mg/dL (8.5-10.1)
[2023-04-09 13:53] LABS: CREATININE 0.7 mg/dL (0.55-1.3)
[2023-04-09 13:55] LABS: TOT PROT 7.3 g/dl (6.4-8.2)
[2023-04-09 13:59] LABS: BILIRUBIN,TOTAL 0.3 mg/dL (0.2-1)
[2023-04-09] MEDS ORDERED: KETOROLAC TROMETHAMINE 15 MG/ML VIAL IVPUSH ONE (14:15)
[2023-04-09] MEDS ORDERED: MAG HYDROX/AL HYDROX/SIMETH -MYLANTA- ORAL SUSPENSION PO ONE (14:17)
[2023-04-09] MEDS ORDERED: ACETAMINOPHEN 325 MG TABLET (FP) PO ONE (14:18)
[2023-04-09] MEDS ORDERED: FAMOTIDINE 10 MG TABLET PO ONE (14:18)
[2023-04-09 15:11] VITALS: BP 133/77; PULSE 71; RESP 16; TEMP 97.6
== END 2023-04-09 15:50 | disposition home or self-care (01) ==
LOC: JER 11:15
DX: R07.89 Other chest pain (principal); R11.0 Nausea
CPT/HCPCS: 36415; 71046-TC-FY; 80053; 84484; 85025; 85610; 85730; 93005; 93010; 99285-25

== ENCOUNTER 2025-01-23 06:14 | Day surgery (SDC) | payer OTHER ==
[2025-01-19 16:41] VITALS: BMI 26.2
[2025-01-23 08:19] VITALS: RESP 18
[2025-01-23] MEDS: LIDOCAINE HCL 1% PRESERVATIVE FREE - 30ML VIAL IJ ONE (10:14)
[2025-01-23] MEDS: BUPIVACAINE HCL/PF 0.5% (5MG/ML) 10 ML VIAL IJ ONE (10:14)
[2025-01-23 10:46] VITALS: BP 156/85; PULSE 67; TEMP 97.1
[2025-01-23] MEDS ORDERED: ACETAMINOPHEN 500 MG TABLET (FP) PO PRN (21:25)
== END 2025-01-23 11:30 | disposition home or self-care (01) ==
LOC: JASU-SURG 06:14
PROVIDERS: ATTEND Pain Medicine Pain Medicine
PROC: 3E0T3BZ Introduction of Anesthetic Agent into Peripheral Nerves and Plexi, Percutaneous Approach (ICD-10-PCS; principal; 2025-01-23 09:45)
DX: M47.812 Spondylosis without myelopathy or radiculopathy, cervical region (principal)
CPT/HCPCS: 76000-TC-FY